=== PATIENT | female | born 1945 | race Caucasian/White ===

== ENCOUNTER 2023-12-29 10:16 | Outpatient (CLI) | payer MEDICARE, SELFPAY ==
--- NOTE | ~2023-12-29 | DEXA_ITS ---
Bone Density Report Name: PITER SCHAFFER Age: 78 Sex: Female Ethnicity: White Date of : 1945 Indication: postmenopausal; screening for osteoporosis; Referring Provider: JESSENIA MORALES Study: Bone densitometry was performed. Exam Date: December 29, 2023 Accession number: [id number] Bone Density: Region BMD T-score Z-score Classification AP Spine(L1-L4) 0.942 -1.0 1.5 Normal Femoral Neck (Left) 0.604 -2.2 0.0 Osteopenia Total Hip (Left) 0.787 -1.3 0.6 Osteopenia Femoral Neck (Right) 0.631 -2.0 0.2 Osteopenia Total Hip (Right) 0.836 -0.9 1.0 Normal Total Hip Mean 0.812 -1.1 0.8 Osteopenia World Health Organization criteria for BMD impression classify patients as: Normal (T-score at or above -1.0), Osteopenia (T-score between -1.0 and -2.5), or Osteoporosis (T-score at or below -2.5). 10-year Fracture Risk(1): Major Osteoporotic Fracture 15% Hip Fracture 4.1% Reported Risk Factors: [place] (), Neck BMD=0.604, BMI=29.9 (1) FRAX(R) Version 3.08. Fracture probability calculated for an untreated patient. Fracture probability may be lower if the patient has received treatment. Clinical Information Provided by Patient: Patient maximum height was 67.0 Menopause Age: 47 No regular weight bearing exercise Drinks caffeinated beverages Onset of menses at age 13 Number of children 2 Impression: The patient has low bone mass, based on the Left Femoral Neck T-score. The patient has an estimated ten-year risk of hip fracture of 4.1% and an estimated ten-year risk of major fracture of 15%, based on the WHO FRAX algorithm. Discussion: BONE DENSITY IS LOW AT ONE OR MORE SKELETAL SITES. THE PATIENT'S BMD AND CLINICAL RISK FACTORS CONTRIBUTE TO THIS PATIENT'S INCREASED RISK OF FRACTURE. This patient's lowest T-score is low at one or more skeletal sites. It meets the World Health Organization's (WHO) criteria for ?low bone mass? (T-score between -1.0 and -2.5). The patient's 10-year risk of hip fracture as calculated by FRAX exceeds the threshold where pharmacological therapy is recommended by the National Osteoporosis Foundation (NOF). However, all treatment decisions require clinical judgment and consideration of individual patient factors, including patient preferences, comorbidities, previous drug use, risk factors not captured in the FRAX model (e.g., frailty, falls, vitamin D deficiency, increased bone turnover, interval significant decline in bone density) and possible under or overestimation of fracture risk by FRAX. The patient should follow a healthful lifestyle (good nutrition with adequate calcium and vitamin D, and appropriate weight-bearing exercise). Follow-Up: Consider a repeat BMD and Vertebral Fracture Assessment (VFA) exam in 2 years or sooner if medically
== END 2023-12-29 10:17 | disposition home or self-care (01) ==
LOC: ANHIMG 10:18
PROVIDERS: PCP Family Medicine Adolescent Medicine; Visit Provider Family Medicine Adolescent Medicine
DX: Z78.0 Asymptomatic menopausal state (principal); M85.852 Other specified disorders of bone density and structure, left thigh; M85.851 Other specified disorders of bone density and structure, right thigh
CPT/HCPCS: 77080

== ENCOUNTER 2024-02-01 08:27 | Outpatient (NON) | payer MEDICARE, SELFPAY | END 2024-02-01 08:28 | disposition home or self-care (01) | LOC: ANHLAB 02-02 08:30 | PROVIDERS: PCP Family Medicine Adolescent Medicine; Visit Provider Plastic Surgery | DX: M67.442 Ganglion, left hand (principal) | CPT/HCPCS: 88305 ==

== ENCOUNTER 2024-02-01 09:19 | Day surgery (SDC) | payer MEDICARE, SELFPAY ==
[2024-01-22 08:13] VITALS: BMI 29.3
--- NOTE | 2024-02-01 07:16 | P.OP_ITS ---
Procedure Note - Detailed Date of Procedure 02/01/24 Pre-op Diagnosis mucous Cyst Left Middle Finger Post-op Diagnosis Same Procedure Performed left mf mucous cyst excision Surgeon Axle Erwin MD Supervisor [employer] jarret olsen pa-c Anesthesia MAC Description of Procedure INFORMED CONSENT: The patient was seen and examined and marked in the pre-op area.? The patient signed the consent form. PROCEDURE IN DETAIL:The patient taken back to OR on the stretcher in supine position. Time out performed with anesthesia, surgeon and staff agreeing on patient's name site and surgery to be performed SCDs were placed on the lower extremities and inflated. A tourniquet was placed on {left} upper extremity and antibiotics given IV After anesthesia administered sedation I injected {4}cc 1%lido and 0.5% marcaine plain for digital block in the palm The?{left upper extremity}?was prepped and draped in sterile fashion the??{left upper extremity} was? exsanguinated with Esmarch bandage and tourniquet inflated to 250mmHg I proceeded with making an elliptical incision around the thinned affected tissue at the left middle finger proximal nail fold overlying mucous cyst through skin and dermis a 15 blade scalpel. This incision was carried back to the D IP joint. I elevated skin flaps medially and laterally and proceeded with dissection around the cyst back to the IP joint capsule. I used bipolar to cauterize the base of the cyst and the DIP joint capsule. Due to the involvement of the proximal nail fold this was unable to be closed primarily even with wide undermining so I proceeded with making a larger size semi circular back cut and creating a larger rotation advancement flap to allow for closure and reasonable reconstruction of the proximal nail fold. After this was elevated and rotated into position it was closed with a combination of 5 0 and 4-0 chromic suture. A dressing of xeroform, 4x4,and tube gauze was applied for patient safety, security, and comfort and secured with an costa bandage after the tourniquet was let down noting the hand was warm and well perfused. The patient was then awaken from anesthesia and transferred to the recovery room in stable condition.? Complications - none EBL- 0cc Disposition - home in stable conditions jarret olsen pa-c was essential for positioning, retraction, closure and dressing placement [facility] [place] Billing Surgery - Charge Forward: Surgery Billing ([id number] same for jarret adding mod )
--- NOTE | 2024-02-01 07:16 | WPDHPUPDATE1 ---
History and Physical Update Update Date/Time: 02/01/24 07:16 Patient seen and examined in pre-operative holding area. No interval change in medical history or symptoms. Patient recalls previous discussion of benefits and alternatives to procedure. Continues to desire to proceed with left middle finger mucous cyst excision. Reviewed procedure, post-op expectations and risks including but not limited to bleeding, infection, injury to tendon/nerve/vessel, decreased hand function, stiffness, RSD, no change or worsening of symptoms, recurrence. I discussed the possible use of assistants and their participation in the case. Patient stated understanding and signed the consent form wishing to proceed.
--- NOTE | 2024-02-01 08:34 | P.PNAN_ITS ---
Anes - Initial Pre Proc Eval Procedure: Operation Date: 02/01/24 11:00 Proposed Procedures p Excision Mucos Cyst Left Middle Finger - Axel Erwin MD Date/Time: 02/01/24 08:34 Surgeon: Axel Erwin MD Pre Op Diagnosis: Ganglion Cyst Left Middle Finger Patient Data Age: 78 Gender: F Height: 1.7 m Weight: 85 kg Allergies Allergy/AdvReac Type Severity Reaction Status Date / Time No Known Allergies Allergy Mild Verified 02/01/24 09:53 Home Medications Medication Instructions Recorded Confirmed Type conjugated estrogens 0.625 mg/gram 0.625 mg vaginal 2XW 10/19/21 02/01/24 History vaginal cream (Premarin) atorvastatin 40 mg tablet See Rx Instructions .Route 11/30/23 02/01/24 Rx .COMPLEX #90 tabs tramadol 50 mg tablet 50 mg PO Q6H PRN pain #12 tabs 02/01/24 Rx Patient hx anesthesia problems: none Family hx anesthesia problems: none Results Review: All pre-operative results and documents have been reviewed as part of the pre- operative evaluation. [facility] Past Medical History Medical History Normal colonoscopy 05/12 Surgical History Surgical History History of bilateral oophorectomy History of cholecystectomy 2006 History of lumbar surgery 05/07 L5-S1 laminotomy & diskectomy History of right knee surgery 12/08 Excision of prepatellar bursa Family History Family History Sibling Carcinoma of colon Breast cancer Social History Social History Smoking status: Never smoker Second hand tobacco smoke exposure: No Alcohol intake: current Alcohol use details: Socially Substance use: never Substance use type: does not use Living arrangements: with family Occupation/Education: retired Sexual Orientation (if Verbalized by the Patient): Straight or Heterosexual Spiritual care concerns: No Agree to blood products: Yes Anes - Eval Final PreProcedure Day of Procedure 02/01/24 08:34 Patient weight: overweight Heart: regular rate and rhythm Lungs: clear to auscultation Airway: Mallampati scale class 1 Neurological: alert and oriented Last oral intake: >/= 8 hours ASA classification: II Emergent: no Anesthetic plan: proceed Anesthesia type and monitoring: general GIVS Results Review: All pre-operative results and documents have been reviewed as part of the pre- operative evaluation. Informed Consent: The patient's anesthetic plan and its attendant risks and benefits were discussed with the patient/family/POA. Questions were solicited and answers provided to the satisfaction of the patient/family/POA.
[2024-02-01 09:47] VITALS: BMI 29.2
[2024-02-01 09:48] VITALS: BP 172/79; PULSE 67; RESP 16; TEMP 36.6; O2SAT 100
[2024-02-01] MEDS: LACTATED RINGERS 1,000 ML 30 ML IV CONT (10:17)
[2024-02-01] MEDS: ceFAZolin SODIUM 2 GM/20 ML SW SYRINGE IV PUSH (11:17)
[2024-02-01] MEDS: LIDOCAINE HCL 1% LOCAL INJ 10 ML VIAL 5 ML INFILTRATE (11:28)
[2024-02-01 11:44] VITALS: BP 129/67; PULSE 57; RESP 16; O2SAT 97
--- NOTE | 2024-02-01 11:50 | WPDANESPN ---
Anes - Prog Note Post-Op Date/Time: 02/01/24 11:50 Cardiovascular status: normal Respiratory status: normal Airway patency: baseline Mental status: baseline Post-Op hydration status: normal Vital Signs: Last Vital Signs Temp 36.6 C 02/01/24 09:48 Pulse 67 02/01/24 09:48 Resp 16 02/01/24 09:48 BP 172/79 H 02/01/24 09:48 Pulse Ox 100 02/01/24 09:48 O2 Del Method Room Air 02/01/24 09:48 Pain Score (VAS): 0 Post-procedural complaints: none Patient Feedback: Patient satisfied with anesthetic care.
[2024-02-01 12:10] VITALS: BP 136/67; PULSE 52; RESP 16; O2SAT 98
== END 2024-02-01 12:30 | disposition home or self-care (01) ==
PROVIDERS: PCP Family Medicine Adolescent Medicine; Visit Provider Plastic Surgery
PROC: (CPT 26160; principal; 2024-02-01 11:00)
DX: M71.342 Other bursal cyst, left hand (principal)
CPT/HCPCS: 26160